=== PATIENT | male | born 1980 | race Caucasian/White ===

== ENCOUNTER 2017-04-15 07:05 | Emergency (ER) | payer OTHER ==
[~2017-04-15] VITALS: Ht 182.9 cm; Wt 69.2 kg
[2017-04-15] MEDS ORDERED: SULF1TAB49 PO (08:06)
[2017-04-15] MEDS ORDERED: CEPH500C5 PO (08:06)
[2017-04-15 08:20] VITALS: BP 113/60
== END 2017-04-15 08:21 | disposition home or self-care (01) ==
LOC: ER 07:06
DX: K62.89 Other specified diseases of anus and rectum (principal); Z79.899 Other long term (current) drug therapy
CPT/HCPCS: 46600; 99283; 99284